=== PATIENT | male | born 1970 | race Hispanic/Latino ===

== ENCOUNTER 2020-04-25 15:06 | Emergency (ER) | payer MEDICARE ==
[2020-04-25] MEDS ORDERED: Vancomycin HCl 500 MG VIAL ONE ×2 (16:20)
[2020-04-25] MEDS ORDERED: Cefepime 2 GM VIAL ONE (16:20)
[2020-04-25 16:24] LABS: #Eosinphils 0.1 10x3/uL (0.0-0.5); #Monocytes 0.6 10x3/uL (0.0-1.1); #Neutrophils 12.2 10x3/uL (1.5-8.4); %Basophils 0.2 % (0.0-2.0); %Eosinophils 0.8 % (0.0-6.0); %Lymphocytes 6.7 % (18.0-47.0); %Monocytes 4.3 % (0.0-10.0); %Neutrophils 86.9 % (40.0-75.0); Hemoglobin 7.9 g/dL (13.5-17.5); Mean Corpuscular HGB CONC 31.9 g/dL (32.0-36.0); Mean Corpuscular Hemoglobin 29.4 pg (27.0-33.0); Mean Corpuscular Volume 92.2 fl (81.2-95.1); Mean Platelet Volume 8.9 fl (7.4-10.4); Platelet Count 451 10x3/uL (150-450); RBC Distribution Width 14.8 % (11.5-14.5); Red Blood Cell (RBC) Count 2.69 10x6/uL (4.32-5.72)
[2020-04-25 16:39] LABS: ALT (SGPT) 19 U/L (8-55); AST (SGOT) 28 U/L (5-34); Albumin 2.1 g/dL (3.5-5.0); Alkaline Phosphatase 60 U/L (40-110); Anion Gap 13 mmol/L (10-20); BUN (Urea Nitrogen) 54 mg/dL (8.9-20.6); Bilirubin, Total 0.2 mg/dL (0.2-1.2); Calc. Creatinine Clearance 0 mL/min (70-130); Calcium 7.8 mg/dL (7.8-10.44); Carbon Dioxide 16 mmol/L (22-29); Chloride 112 mmol/L (98-107); Globulin 3.3 g/dL (2.4-3.5); Glucose 159 mg/dL (70-105); Potassium 4.6 mmol/L (3.5-5.1); Protein, Total 5.4 g/dL (6.0-8.3); Sodium 136 mmol/L (136-145)
== END 2020-04-25 19:49 | disposition short-term general hospital (02) ==
LOC: CSHERS 15:06
DX: A41.9 Sepsis, unspecified organism (principal); M65.9 Synovitis and tenosynovitis, unspecified; E10.9 Type 1 diabetes mellitus without complications; D50.9 Iron deficiency anemia, unspecified; E78.5 Hyperlipidemia, unspecified
CPT/HCPCS: 80053; 83605; 85025; 85652; 86140; 87040; 93005; 96365; 96366; 96367; J0692; J3370

== ENCOUNTER 2020-10-22 10:45 | Outpatient (CLI) | payer MEDICARE | END 2020-10-22 10:46 | disposition home or self-care (01) | LOC: CSHWCC 10:45 | PROVIDERS: ATTEND Nurse Practitioner Family | DX: T87.89 Other complications of amputation stump (principal); T86.821 Skin graft (allograft) (autograft) failure; N49.3 Fournier gangrene; E11.621 Type 2 diabetes mellitus with foot ulcer; L97.509 Non-pressure chronic ulcer of other part of unspecified foot with unspecified severity; S31.20XD Unspecified open wound of penis, subsequent encounter; E11.319 Type 2 diabetes mellitus with unspecified diabetic retinopathy without macular edema; E11.40 Type 2 diabetes mellitus with diabetic neuropathy, unspecified; F33.9 Major depressive disorder, recurrent, unspecified; I10 Essential (primary) hypertension; G47.39 Other sleep apnea; R11.2 Nausea with vomiting, unspecified | CPT/HCPCS: 97139; G0463; 99213 ==

== ENCOUNTER 2020-12-08 09:57 | Outpatient (CLI) | payer MEDICARE | END 2020-12-08 09:58 | disposition home or self-care (01) | LOC: CSHWCC 09:57 | PROVIDERS: ATTEND Nurse Practitioner Family | DX: M72.6 Necrotizing fasciitis (principal) | CPT/HCPCS: 82962; 97139; G0277; 36416 ==

== ENCOUNTER 2020-12-10 08:15 | Outpatient (CLI) | payer MEDICARE | END 2020-12-10 08:16 | disposition home or self-care (01) | LOC: CSHWCC 08:15 | PROVIDERS: ATTEND Nurse Practitioner Family | DX: M72.6 Necrotizing fasciitis (principal) | CPT/HCPCS: 82962; 97139; G0277; 36416 ==

== ENCOUNTER 2020-12-13 08:36 | Outpatient (CLI) | payer MEDICARE | END 2020-12-13 08:37 | disposition home or self-care (01) | LOC: CSHWCC 08:36 | PROVIDERS: ATTEND Nurse Practitioner Family | DX: M72.6 Necrotizing fasciitis (principal) | CPT/HCPCS: 36416; G0277 ==

== ENCOUNTER 2020-12-22 09:26 | Outpatient (CLI) | payer MEDICARE | END 2020-12-22 09:27 | disposition home or self-care (01) | LOC: CSHWCC 09:26 | PROVIDERS: ATTEND Nurse Practitioner Family | DX: M72.6 Necrotizing fasciitis (principal); S31.20XD Unspecified open wound of penis, subsequent encounter; T86.821 Skin graft (allograft) (autograft) failure; E11.319 Type 2 diabetes mellitus with unspecified diabetic retinopathy without macular edema; E11.40 Type 2 diabetes mellitus with diabetic neuropathy, unspecified; E11.621 Type 2 diabetes mellitus with foot ulcer; L97.509 Non-pressure chronic ulcer of other part of unspecified foot with unspecified severity; F33.9 Major depressive disorder, recurrent, unspecified; G47.39 Other sleep apnea; I10 Essential (primary) hypertension; I96 Gangrene, not elsewhere classified; R11.2 Nausea with vomiting, unspecified | CPT/HCPCS: 36416 ==

== ENCOUNTER 2020-12-24 10:54 | Outpatient (CLI) | payer MEDICARE | END 2020-12-24 10:55 | disposition home or self-care (01) | LOC: CSHWCC 10:54 | PROVIDERS: ATTEND Nurse Practitioner Family | DX: M72.6 Necrotizing fasciitis (principal) | CPT/HCPCS: 36416; G0277 ==

== ENCOUNTER 2020-12-27 07:46 | Outpatient (CLI) | payer MEDICARE | END 2020-12-27 07:47 | disposition home or self-care (01) | LOC: CSHWCC 07:46 | PROVIDERS: ATTEND Nurse Practitioner Family | DX: M72.6 Necrotizing fasciitis (principal) | CPT/HCPCS: 36416; G0277 ==

== ENCOUNTER 2020-12-31 09:29 | Outpatient (CLI) | payer MEDICARE | END 2020-12-31 09:30 | disposition home or self-care (01) | LOC: CSHWCC 09:29 | PROVIDERS: ATTEND Nurse Practitioner Family | DX: M72.6 Necrotizing fasciitis (principal) | CPT/HCPCS: 36416; G0277 ==

== ENCOUNTER 2021-01-03 09:51 | Outpatient (CLI) | payer MEDICARE | END 2021-01-03 09:52 | disposition home or self-care (01) | LOC: CSHWCC 09:51 | PROVIDERS: ATTEND Nurse Practitioner Family | DX: M72.6 Necrotizing fasciitis (principal) | CPT/HCPCS: 36416; G0277 ==

== ENCOUNTER 2021-01-04 14:48 | Outpatient (CLI) | payer MEDICARE | END 2021-01-04 14:49 | disposition home or self-care (01) | LOC: CSHRAD 14:48 | PROVIDERS: ATTEND Internal Medicine | DX: R05.9 Cough, unspecified (principal); R06.02 Shortness of breath; R91.8 Other nonspecific abnormal finding of lung field | CPT/HCPCS: 71046 ==

== ENCOUNTER 2021-01-07 08:06 | Outpatient (CLI) | payer MEDICARE | END 2021-01-07 08:07 | disposition home or self-care (01) | LOC: CSHWCC 08:06 | PROVIDERS: ATTEND Nurse Practitioner Family | DX: M72.6 Necrotizing fasciitis (principal) | CPT/HCPCS: 36416; 99212; G0463 ==

== ENCOUNTER 2021-01-10 08:22 | Outpatient (CLI) | payer MEDICARE | END 2021-01-10 08:23 | disposition home or self-care (01) | LOC: CSHWCC 08:22 | PROVIDERS: ATTEND Nurse Practitioner Family | DX: M72.6 Necrotizing fasciitis (principal) | CPT/HCPCS: 36416; G0277 ==

== ENCOUNTER 2021-01-19 08:18 | Outpatient (CLI) | payer MEDICARE | END 2021-01-19 08:19 | disposition home or self-care (01) | LOC: CSHWCC 08:18 | PROVIDERS: ATTEND Nurse Practitioner Family | DX: M72.6 Necrotizing fasciitis (principal) | CPT/HCPCS: 36416 ==

== ENCOUNTER 2021-01-21 10:15 | Outpatient (CLI) | payer MEDICARE | END 2021-01-21 10:16 | disposition home or self-care (01) | LOC: CSHWCC 10:15 | PROVIDERS: ATTEND Nurse Practitioner Family | DX: S31.20XA Unspecified open wound of penis, initial encounter (principal); E11.319 Type 2 diabetes mellitus with unspecified diabetic retinopathy without macular edema; E11.40 Type 2 diabetes mellitus with diabetic neuropathy, unspecified; E11.621 Type 2 diabetes mellitus with foot ulcer; F33.9 Major depressive disorder, recurrent, unspecified; G47.39 Other sleep apnea; I10 Essential (primary) hypertension; I96 Gangrene, not elsewhere classified; M72.6 Necrotizing fasciitis; R11.2 Nausea with vomiting, unspecified; T86.821 Skin graft (allograft) (autograft) failure; L97.509 Non-pressure chronic ulcer of other part of unspecified foot with unspecified severity | CPT/HCPCS: 36416; 99213; G0277; G0463 ==

== ENCOUNTER 2021-01-31 08:05 | Outpatient (CLI) | payer MEDICARE | END 2021-01-31 08:06 | disposition home or self-care (01) | LOC: CSHWCC 08:05 | PROVIDERS: ATTEND Nurse Practitioner Family | DX: M72.6 Necrotizing fasciitis (principal) | CPT/HCPCS: 36416; G0277 ==

== ENCOUNTER 2021-02-02 10:45 | Outpatient (CLI) | payer MEDICARE | END 2021-02-02 10:46 | disposition home or self-care (01) | LOC: CSHWCC 10:45 | PROVIDERS: ATTEND Nurse Practitioner Family | DX: M72.6 Necrotizing fasciitis (principal) | CPT/HCPCS: 36416 ==

== ENCOUNTER 2021-02-04 08:22 | Outpatient (CLI) | payer MEDICARE | END 2021-02-04 08:23 | disposition home or self-care (01) | LOC: CSHWCC 08:22 | PROVIDERS: ATTEND Nurse Practitioner Family | DX: M72.6 Necrotizing fasciitis (principal) | CPT/HCPCS: 36416 ==

== ENCOUNTER 2021-03-13 18:16 | Emergency (ER) | payer MEDICARE, BC | END 2021-03-13 19:01 | disposition home or self-care (01) | LOC: CSHERS 18:16 | DX: R04.0 Epistaxis (principal); E11.9 Type 2 diabetes mellitus without complications; D50.9 Iron deficiency anemia, unspecified; I25.10 Atherosclerotic heart disease of native coronary artery without angina pectoris; E78.5 Hyperlipidemia, unspecified; I10 Essential (primary) hypertension | CPT/HCPCS: 99283 ==

== ENCOUNTER 2021-05-20 08:57 | Outpatient (CLI) | payer MEDICARE | END 2021-05-20 08:58 | disposition home or self-care (01) | LOC: CSHWCC 08:57 | PROVIDERS: ATTEND Nurse Practitioner Family | DX: I70.268 Atherosclerosis of native arteries of extremities with gangrene, other extremity (principal); L98.498 Non-pressure chronic ulcer of skin of other sites with other specified severity; L03.012 Cellulitis of left finger ==

== ENCOUNTER 2021-08-04 18:39 | Emergency (ER) | payer MEDICARE, BC ==
[2021-08-04] MEDS ORDERED: Cefepime 2 GM VIAL ONE (20:02)
[2021-08-04 20:03] LABS: #Eosinphils 0.1 10x3/uL (0.0-0.5); #Monocytes 0.9 10x3/uL (0.0-1.1); %Basophils 0.3 % (0.0-2.0); %Eosinophils 0.7 % (0.0-6.0); %Lymphocytes 5.9 % (18.0-47.0); %Monocytes 7.7 % (0.0-10.0); %Neutrophils 84.9 % (40.0-75.0); Hemoglobin 8.2 g/dL (13.5-17.5); Mean Corpuscular HGB CONC 32.9 g/dL (32.0-36.0); Mean Corpuscular Hemoglobin 30.1 pg (27.0-33.0); Mean Corpuscular Volume 91.5 fl (81.2-95.1); Mean Platelet Volume 10.1 fl (7.4-10.4); Platelet Count 190 10x3/uL (150-450); Red Blood Cell (RBC) Count 2.72 10x6/uL (4.32-5.72); White Blood Cell (WBC) Count 11.8 10x3/uL (3.5-10.5)
[2021-08-04 20:09] LABS: ALT (SGPT) 35 U/L (8-55); AST (SGOT) 52 U/L (5-34); Albumin 3.7 g/dL (3.5-5.0); Alkaline Phosphatase 88 U/L (40-110); Anion Gap 15 mmol/L (10-20); BUN (Urea Nitrogen) 31 mg/dL (8.4-25.7); Bilirubin, Total 0.7 mg/dL (0.2-1.2); Calc. Creatinine Clearance 0 mL/min (70-130); Calcium 9.2 mg/dL (7.8-10.44); Carbon Dioxide 31 mmol/L (22-29); Chloride 91 mmol/L (98-107); Globulin 5.2 g/dL (2.4-3.5); Glucose 139 mg/dL (70-105); Potassium 4.4 mmol/L (3.5-5.1); Protein, Total 8.9 g/dL (6.0-8.3); Sodium 133 mmol/L (136-145)
== END 2021-08-05 01:37 | disposition short-term general hospital (02) ==
LOC: CSHERS 18:39
DX: L08.9 Local infection of the skin and subcutaneous tissue, unspecified (principal); E11.9 Type 2 diabetes mellitus without complications; D64.9 Anemia, unspecified; I25.10 Atherosclerotic heart disease of native coronary artery without angina pectoris; E78.00 Pure hypercholesterolemia, unspecified; I10 Essential (primary) hypertension
CPT/HCPCS: 36415; 80053; 83605; 85025; 87040; 87070; 87077; 87186; 87205; 96365; 96366; 96367; J0692; J3370

== ENCOUNTER 2022-01-12 03:09 | Emergency (ER) | payer MEDICARE, OTHER ==
[2022-01-12] MEDS ORDERED: Oxymetazoline HCl 0.05% ( 15 ML ) ONE (03:42)
== END 2022-01-12 05:01 | disposition home or self-care (01) ==
LOC: CSHERS 03:09
DX: R04.0 Epistaxis (principal); E11.9 Type 2 diabetes mellitus without complications; E78.5 Hyperlipidemia, unspecified; I10 Essential (primary) hypertension; I25.10 Atherosclerotic heart disease of native coronary artery without angina pectoris; Z79.899 Other long term (current) drug therapy
CPT/HCPCS: 99283

== ENCOUNTER 2022-03-17 08:27 | Outpatient (CLI) | payer BC, MEDICARE | END 2022-03-17 08:28 | disposition home or self-care (01) | LOC: CSHWCC 08:27 | PROVIDERS: ATTEND Nurse Practitioner Family | DX: T81.89XD Other complications of procedures, not elsewhere classified, subsequent encounter (principal) | CPT/HCPCS: 11043; 87070; 87077; 87186; 87205; 97139; 97605; G0463; 99212 ==

== ENCOUNTER 2022-03-19 11:30 | Emergency (ER) | payer MEDICARE, BC ==
[2022-03-19] MEDS ORDERED: HYDROcodone/Acetaminophen 5/325 mg Tablet ONE (12:24)
== END 2022-03-19 13:15 | disposition home or self-care (01) ==
LOC: CSHERS 11:30
DX: M25.522 Pain in left elbow (principal); E11.9 Type 2 diabetes mellitus without complications; Z79.4 Long term (current) use of insulin; I25.10 Atherosclerotic heart disease of native coronary artery without angina pectoris; E78.2 Mixed hyperlipidemia; I10 Essential (primary) hypertension; Z79.899 Other long term (current) drug therapy; Z79.82 Long term (current) use of aspirin

== ENCOUNTER 2022-03-21 12:19 | Emergency (ER) | payer MEDICARE, BC ==
[2022-03-21 13:31] LABS: #Eosinphils 0.1 10x3/uL (0.0-0.5); #Monocytes 0.5 10x3/uL (0.0-1.1); #Neutrophils 9.8 10x3/uL (1.5-8.4); %Basophils 0.2 % (0.0-2.0); %Eosinophils 0.6 % (0.0-6.0); %Lymphocytes 3.8 % (18.0-47.0); %Monocytes 4.7 % (0.0-10.0); %Neutrophils 90.2 % (40.0-75.0); Hemoglobin 7.2 g/dL (13.5-17.5); Mean Corpuscular HGB CONC 32.3 g/dL (32.0-36.0); Mean Corpuscular Hemoglobin 31.7 pg (27.0-33.0); Mean Corpuscular Volume 98.2 fl (81.2-95.1); Mean Platelet Volume 10.6 fl (7.4-10.4); Platelet Count 181 10x3/uL (150-450); RBC Distribution Width 17.4 % (11.5-14.5); Red Blood Cell (RBC) Count 2.27 10x6/uL (4.32-5.72); White Blood Cell (WBC) Count 10.9 10x3/uL (3.5-10.5)
[2022-03-21 13:56] LABS: Bilirubin, Total 0.8 mg/dL (0.2-1.2); Calcium 8.9 mg/dL (7.8-10.44); Chloride 97 mmol/L (98-107); Potassium 3.4 mmol/L (3.5-5.1); Sodium 138 mmol/L (136-145)
[2022-03-21 14:28] LABS: ALT (SGPT) 18 U/L (8-55); AST (SGOT) 30 U/L (5-34); Albumin 3.7 g/dL (3.5-5.0); Alkaline Phosphatase 99 U/L (40-110); BUN (Urea Nitrogen) 25 mg/dL (8.4-25.7); Calc. Creatinine Clearance 0 mL/min (70-130); Carbon Dioxide 29 mmol/L (22-29); Estimated GFR 22; Globulin 4.4 g/dL (2.4-3.5); Glucose 82 mg/dL (70-105); Protein, Total 8.1 g/dL (6.0-8.3)
[2022-03-21 14:48] LABS: Anion Gap 15 mmol/L (10-20)
== END 2022-03-21 15:53 | disposition home or self-care (01) ==
LOC: CSHERS 12:19
DX: D64.9 Anemia, unspecified (principal); E11.22 Type 2 diabetes mellitus with diabetic chronic kidney disease; N18.9 Chronic kidney disease, unspecified; E78.2 Mixed hyperlipidemia; I10 Essential (primary) hypertension; Z79.4 Long term (current) use of insulin
CPT/HCPCS: 80053; 85025; 99284

== ENCOUNTER 2022-03-24 10:30 | Outpatient (CLI) | payer MEDICARE, BC | END 2022-03-24 10:31 | disposition home or self-care (01) | LOC: CSHWCC 10:30 | PROVIDERS: ATTEND Nurse Practitioner Family | DX: T81.89XD Other complications of procedures, not elsewhere classified, subsequent encounter (principal) | CPT/HCPCS: 97605 ==

== ENCOUNTER 2022-05-09 06:02 | Inpatient (IN) | payer BC, MEDICARE ==
[2022-05-09] MEDS ORDERED: Dextrose 50% Abboject 50 ML SYRINGE SLOW IVP SCH (06:30)
[2022-05-09 06:41] LABS: #Monocytes 0.4 10x3/uL (0.0-1.1); #Neutrophils 10.4 10x3/uL (1.5-8.4); %Basophils 0.1 % (0.0-2.0); %Eosinophils 0.2 % (0.0-6.0); %Lymphocytes 2.2 % (18.0-47.0); %Monocytes 3.8 % (0.0-10.0); %Neutrophils 92.9 % (40.0-75.0); Hemoglobin 8.1 g/dL (13.5-17.5); Mean Corpuscular HGB CONC 32.1 g/dL (32.0-36.0); Mean Corpuscular Hemoglobin 31.8 pg (27.0-33.0); Mean Corpuscular Volume 98.8 fl (81.2-95.1); Mean Platelet Volume 11.7 fl (7.4-10.4); Platelet Count 138 10x3/uL (150-450); RBC Distribution Width 17.3 % (11.5-14.5); Red Blood Cell (RBC) Count 2.55 10x6/uL (4.32-5.72); White Blood Cell (WBC) Count 11.2 10x3/uL (3.5-10.5)
[2022-05-09] MEDS ORDERED: Ondansetron PF 4 MG/2 ML Vial ONE (06:43)
[2022-05-09 06:51] LABS: INR-International Normal Ratio 1.5; PTT 36.1 sec (22.0-33.0); Prothrombin Time 16.1 sec (9.5-12.1)
[2022-05-09 06:57] LABS: ALT (SGPT) 23 U/L (8-55); AST (SGOT) 49 U/L (5-34); Albumin 3.3 g/dL (3.5-5.0); Alkaline Phosphatase 63 U/L (40-110); Anion Gap 21 mmol/L (10-20); BUN (Urea Nitrogen) 61 mg/dL (8.4-25.7); Bilirubin, Total 1.4 mg/dL (0.2-1.2); Calc. Creatinine Clearance 0 mL/min (70-130); Carbon Dioxide 19 mmol/L (22-29); Chloride 95 mmol/L (98-107); Estimated GFR 9; Globulin 4.3 g/dL (2.4-3.5); Glucose 70 mg/dL (70-105); Potassium 4.4 mmol/L (3.5-5.1); Protein, Total 7.6 g/dL (6.0-8.3); Sodium 131 mmol/L (136-145)
[2022-05-09 07:15] LABS: SARS-CoV-2 NAA Rapid Test Not Detected (NotDetected)
[2022-05-09 07:25] LABS: CKMB 3.4 ng/mL (0-6.6)
[2022-05-09] MEDS ORDERED: Vancomycin 1 GM VIAL ONE (08:47)
[2022-05-09] MEDS ORDERED: Piperacillin/Tazobactam 3.375 GM VIAL ONE (08:48)
[2022-05-09] MEDS ORDERED: Iopamidol 300 61% 100 ML VIAL FS ONE (09:10)
[2022-05-09 09:24] LABS: Lactic Acid 1.8 mmol/L (0.5-2.2)
[2022-05-09] MEDS ORDERED: Insulin Regular 300 UNITS/3 ML VIAL SC PRN ×2 (13:07)
[2022-05-09] MEDS ORDERED: Dextrose 5% in Water 1,000 ML IV PRN (13:07)
[2022-05-09] MEDS ORDERED: Dextrose 50% Abboject 50 ML SYRINGE SLOW IVP PRN (13:07)
[2022-05-09 13:44] LABS: Acetaminophen Less than 10.0 mcg/mL (10.0-30.0); Alcohol Less than 10 mg/dL (Less than 10); Salicylate Less than 8.0 mg/dL (15.0-30.0)
[2022-05-09 14:12] LABS: CKMB 3.3 ng/mL (0-6.6)
[2022-05-09 14:12] LABS: Magnesium 1.7 mg/dL (1.6-2.6); Phosphorus 4.8 mg/dL (2.3-4.7)
[2022-05-09] MEDS ORDERED: Heparin 10,000 UNITS/ 10 ML VIAL SLOW IVP PRN (14:19)
[2022-05-09] MEDS ORDERED: metroNIDAZOLE 500 MG in Premix Bag 1 BAG IVPB SCH (15:00)
[2022-05-09] MEDS ORDERED: Dextrose 10% in Water 250 ML IV PRN (15:37)
[2022-05-09] MEDS ORDERED: Albumin 25% 25 GM/100 ML BOT IVPB PRN (16:18)
[2022-05-09] MEDS ORDERED: Cefepime 0.5 GM, Admixture Fee 1 EACH in Sodium Chloride 0.9% 100 ML IVPB SCH (20:00)
[2022-05-09] MEDS: Doxycycline 100 MG in Sodium Chloride 0.9% 100 ML IVPB SCH (20:41)
[2022-05-10 04:01] LABS: #Monocytes 0.3 10x3/uL (0.0-1.1); #Neutrophils 7.4 10x3/uL (1.5-8.4); %Basophils 0.1 % (0.0-2.0); %Eosinophils 0.2 % (0.0-6.0); %Lymphocytes 4.5 % (18.0-47.0); %Monocytes 3.1 % (0.0-10.0); Hemoglobin 6.9 g/dL (13.5-17.5); Mean Corpuscular HGB CONC 31.4 g/dL (32.0-36.0); Mean Corpuscular Hemoglobin 30.9 pg (27.0-33.0); Mean Corpuscular Volume 98.7 fl (81.2-95.1); Mean Platelet Volume 12.5 fl (7.4-10.4); Platelet Count 97 10x3/uL (150-450); RBC Distribution Width 17.5 % (11.5-14.5); Red Blood Cell (RBC) Count 2.23 10x6/uL (4.32-5.72); White Blood Cell (WBC) Count 8.4 10x3/uL (3.5-10.5)
[2022-05-10 04:15] LABS: ALT (SGPT) 28 U/L (8-55); AST (SGOT) 75 U/L (5-34); Albumin 3.3 g/dL (3.5-5.0); Alkaline Phosphatase 48 U/L (40-110); Anion Gap 14 mmol/L (10-20); BUN (Urea Nitrogen) 23 mg/dL (8.4-25.7); Calc. Creatinine Clearance 27 mL/min (70-130); Calcium 8.8 mg/dL (7.8-10.44); Carbon Dioxide 26 mmol/L (22-29); Chloride 101 mmol/L (98-107); Estimated GFR 22; Globulin 3.4 g/dL (2.4-3.5); Glucose 88 mg/dL (70-105); Potassium 3.7 mmol/L (3.5-5.1); Protein, Total 6.7 g/dL (6.0-8.3); Sodium 137 mmol/L (136-145)
[2022-05-10] MEDS: metroNIDAZOLE 500 MG in Premix Bag 1 BAG IVPB SCH ×2 (04:20→15:51)
[2022-05-10 04:50] LABS: Band 25 % (5-11); Lymphocytes 5 % (21-51); Monocytes 2 % (0-10)
[2022-05-10 04:51] LABS: Neutrophil 68 % (42-75)
[2022-05-10] MEDS: Pantoprazole 40 MG VIAL IVP SCH (07:48)
[2022-05-10] MEDS: Doxycycline 100 MG in Sodium Chloride 0.9% 100 ML IVPB SCH (07:48)
[2022-05-10 12:05] LABS: Iron 15 ug/dL (65-175); Iron Binding Capacity, Total 186 mcg/dL (261-462)
[2022-05-10] MEDS: Vancomycin HCl 25 MG/ML ORAL SOLN PO SCH ×3 (12:51→23:50)
[2022-05-10] MEDS ORDERED: Metoprolol Tartrate 25 MG TAB PO SCH (13:00)
[2022-05-10] MEDS: Metoprolol Tartrate 25 MG TAB PO SCH (20:19)
[2022-05-10 20:55] LABS: Campy jejuni + coli by PCR Negative (Negative); STEC Shiga Toxin 1+2 Negative (Negative); Salmonella spp. by PCR Negative (Negative); Shigella spp + EIEC by PCR Negative (Negative)
[2022-05-11] MEDS: metroNIDAZOLE 500 MG in Premix Bag 1 BAG IVPB SCH ×2 (03:49→16:39)
[2022-05-11 04:03] LABS: Anion Gap 14 mmol/L (10-20); BUN (Urea Nitrogen) 37 mg/dL (8.4-25.7); Calc. Creatinine Clearance 20 mL/min (70-130); Calcium 8.3 mg/dL (7.8-10.44); Carbon Dioxide 23 mmol/L (22-29); Chloride 98 mmol/L (98-107); Estimated GFR 15; Glucose 82 mg/dL (70-105); Potassium 3.8 mmol/L (3.5-5.1); Sodium 131 mmol/L (136-145)
[2022-05-11 04:08] LABS: Hemoglobin 6.9 g/dL (13.5-17.5); Mean Corpuscular HGB CONC 30.8 g/dL (32.0-36.0); Mean Corpuscular Hemoglobin 30.9 pg (27.0-33.0); Mean Corpuscular Volume 100.4 fl (81.2-95.1); Mean Platelet Volume 12.8 fl (7.4-10.4); Platelet Count 96 10x3/uL (150-450); RBC Distribution Width 17.5 % (11.5-14.5); Red Blood Cell (RBC) Count 2.23 10x6/uL (4.32-5.72); White Blood Cell (WBC) Count 8.3 10x3/uL (3.5-10.5)
[2022-05-11 04:39] LABS: MDiff Complete? YES
[2022-05-11 04:42] LABS: Band 13 % (5-11); Lymphocytes 4 % (21-51); Monocytes 3 % (0-10); Neutrophil 80 % (42-75)
[2022-05-11 04:43] LABS: Platelet Clumps SLIGHT; Platelet Morphology Comment Appears Decreased
[2022-05-11 04:44] LABS: RBC Morphology Normal
[2022-05-11] MEDS: Vancomycin HCl 25 MG/ML ORAL SOLN PO SCH ×3 (05:14→19:23)
[2022-05-11] MEDS ORDERED: Iron, Sodium Ferric Gluconate 250 MG in Sodium Chloride 0.9% 250 ML 250 ML IVPB SCH (07:45)
[2022-05-11] MEDS: Metoprolol Tartrate 25 MG TAB PO SCH ×2 (08:27→21:12)
[2022-05-11] MEDS: Pantoprazole 40 MG VIAL IVP SCH (08:27)
[2022-05-11] MEDS ORDERED: EPOETIN ALFA-EPBX (ESRD) 10,000 UNIT/ML VIAL SC SCH ×2 (09:00→11:00)
[2022-05-11] MEDS ORDERED: Famotidine/PF 20 mg/2ml Vial SLOW IVP SCH (09:00)
[2022-05-11] MEDS: Acetaminophen 325 MG TAB PO PRN (09:02)
[2022-05-11 10:40] LABS: Actual Bicarbonate (HCO3v) 23 mEq/L (22-28); Base Excess -2.2 mEq/L (-2 - +2); Calcium, Ionized (venous) 1.03 mmol/L (1.16-1.32); Chloride (VBG) 96 mmol/L (98-106); Hemoglobin (Hb) 7.7 g/dL (13.1-17.2); Potassium (VBG) 4.08 mmol/L (3.70-5.30); Puncture Site Other Site; pH (venous) 7.39 (7.32-7.43)
[2022-05-11] MEDS: Albumin 25% 25 GM/100 ML BOT IVPB SCH ×2 (11:47→13:27)
[2022-05-11] MEDS: Epoetin (ESRD) 20,000 UNITS/ML MDV SC SCH (12:45)
[2022-05-11] MEDS ORDERED: Ondansetron PF 4 MG/2 ML Vial IVP PRN (17:24)
[2022-05-11] MEDS ORDERED: Metoclopramide HCl 10 MG/2 ML VIAL IVP PRN (18:44)
[2022-05-12] MEDS: Vancomycin HCl 25 MG/ML ORAL SOLN PO SCH ×5 (00:43→23:26)
[2022-05-12] MEDS: metroNIDAZOLE 500 MG in Premix Bag 1 BAG IVPB SCH ×2 (03:10→15:34)
[2022-05-12] MEDS: Metoprolol Tartrate 25 MG TAB PO SCH ×2 (08:02→21:33)
[2022-05-12] MEDS: Famotidine/PF 20 mg/2ml Vial SLOW IVP SCH (08:02)
[2022-05-12 08:28] LABS: #Eosinphils 0.1 10x3/uL (0.0-0.5); #Monocytes 0.6 10x3/uL (0.0-1.1); #Neutrophils 8.7 10x3/uL (1.5-8.4); %Basophils 0.3 % (0.0-2.0); %Eosinophils 0.6 % (0.0-6.0); %Lymphocytes 3.9 % (18.0-47.0); %Monocytes 5.5 % (0.0-10.0); %Neutrophils 87.8 % (40.0-75.0); Hemoglobin 7.3 g/dL (13.5-17.5); Mean Corpuscular HGB CONC 30.5 g/dL (32.0-36.0); Mean Corpuscular Hemoglobin 30.7 pg (27.0-33.0); Mean Corpuscular Volume 100.4 fl (81.2-95.1); Mean Platelet Volume 12.1 fl (7.4-10.4); Platelet Count 91 10x3/uL (150-450); RBC Distribution Width 17.9 % (11.5-14.5); Red Blood Cell (RBC) Count 2.38 10x6/uL (4.32-5.72); White Blood Cell (WBC) Count 9.9 10x3/uL (3.5-10.5)
[2022-05-12 08:43] LABS: Albumin 3.6 g/dL (3.5-5.0); Anion Gap 16 mmol/L (10-20); BUN (Urea Nitrogen) 22 mg/dL (8.4-25.7); BUN/Creatinine Ratio 7.03; Calc. Creatinine Clearance 29 mL/min (70-130); Calcium 8.7 mg/dL (7.8-10.44); Carbon Dioxide 25 mmol/L (22-29); Chloride 97 mmol/L (98-107); Estimated GFR 23; Glucose 109 mg/dL (70-105); Phosphorus 2.9 mg/dL (2.3-4.7); Potassium 3.8 mmol/L (3.5-5.1); Sodium 134 mmol/L (136-145)
[2022-05-12 10:00] LABS: Platelet Morphology Comment Appears Decreased
[2022-05-12 10:01] LABS: Anisocytosis SLIGHT = 6-15 cells (100X) (0-5/hpf); Macrocytosis SLIGHT = 6-15 cells (100X) (0-5/hpf); Microcytosis SLIGHT = 6-15 cells (100X) (0-5/hpf)
[2022-05-12 10:02] LABS: Hypochromia SLIGHT = 6-15 cells (100X) (0-5/hpf); Stomatocytes SLIGHT = 2-5 cells (100X) (0-1/hpf); Target Cells SLIGHT = 2-5 cells (100X) (0-1/hpf)
[2022-05-12] MEDS: Loperamide HCl 2 MG CAP PO SCH ×3 (11:05→23:25)
[2022-05-12] MEDS ORDERED: Insulin Regular 300 UNITS/3 ML VIAL ONE (22:07)
[2022-05-13] MEDS: metroNIDAZOLE 500 MG in Premix Bag 1 BAG IVPB SCH ×2 (03:07→16:14)
[2022-05-13] MEDS: Vancomycin HCl 25 MG/ML ORAL SOLN PO SCH ×4 (06:03→23:16)
[2022-05-13] MEDS: Loperamide HCl 2 MG CAP PO SCH ×4 (06:03→23:16)
[2022-05-13] MEDS: Metoprolol Tartrate 25 MG TAB PO SCH ×2 (07:53→21:04)
[2022-05-13] MEDS: Famotidine/PF 20 mg/2ml Vial SLOW IVP SCH (07:53)
[2022-05-13 08:27] LABS: Hemoglobin 7.1 g/dL (13.5-17.5); MDiff Complete? YES; Mean Corpuscular HGB CONC 30.6 g/dL (32.0-36.0); Mean Corpuscular Hemoglobin 30.9 pg (27.0-33.0); Mean Corpuscular Volume 100.9 fl (81.2-95.1); Mean Platelet Volume 12.4 fl (7.4-10.4); Platelet Count 100 10x3/uL (150-450); RBC Distribution Width 18.1 % (11.5-14.5)
[2022-05-13 08:28] LABS: Albumin 3.1 g/dL (3.5-5.0); Anion Gap 19 mmol/L (10-20); BUN (Urea Nitrogen) 36 mg/dL (8.4-25.7); BUN/Creatinine Ratio 8.53; Calc. Creatinine Clearance 22 mL/min (70-130); Calcium 8.5 mg/dL (7.8-10.44); Carbon Dioxide 21 mmol/L (22-29); Chloride 96 mmol/L (98-107); Estimated GFR 16; Glucose 79 mg/dL (70-105); Phosphorus 3.4 mg/dL (2.3-4.7); Potassium 3.8 mmol/L (3.5-5.1); Sodium 132 mmol/L (136-145)
[2022-05-13 09:12] LABS: Myelocyte 1 % (0-0); Reactive Lymphocytes 1 % (0-10)
[2022-05-13 09:14] LABS: Band 5 % (5-11); Lymphocytes 5 % (21-51); Monocytes 7 % (0-10)
[2022-05-13 09:15] LABS: Neutrophil 81 % (42-75)
[2022-05-13 09:16] LABS: Platelet Morphology Comment Appears Decreased
[2022-05-13] MEDS: Albumin 25% 25 GM/100 ML BOT IVPB PRN ×2 (10:40→11:45)
[2022-05-13] MEDS: Epoetin (ESRD) 20,000 UNITS/ML MDV SC SCH (13:34)
[2022-05-13] MEDS: Ferrous Sulfate 325 MG TAB PO SCH (16:16)
[2022-05-13] MEDS: Acetaminophen 325 MG TAB PO PRN (16:16)
[2022-05-14] MEDS: metroNIDAZOLE 500 MG in Premix Bag 1 BAG IVPB SCH (04:27)
[2022-05-14] MEDS: Loperamide HCl 2 MG CAP PO SCH ×2 (05:07→11:12)
[2022-05-14] MEDS: Vancomycin HCl 25 MG/ML ORAL SOLN PO SCH ×2 (05:08→11:12)
[2022-05-14 05:16] VITALS: BMI 25.9
[2022-05-14] MEDS: Ferrous Sulfate 325 MG TAB PO SCH (07:45)
[2022-05-14] MEDS: Famotidine/PF 20 mg/2ml Vial SLOW IVP SCH (07:45)
[2022-05-14] MEDS: Metoprolol Tartrate 25 MG TAB PO SCH (07:45)
[2022-05-14 09:50] LABS: Anion Gap 16 mmol/L (10-20); BUN (Urea Nitrogen) 18 mg/dL (8.4-25.7); Calc. Creatinine Clearance 29 mL/min (70-130); Calcium 8.5 mg/dL (7.8-10.44); Carbon Dioxide 27 mmol/L (22-29); Chloride 96 mmol/L (98-107); Estimated GFR 24; Glucose 86 mg/dL (70-105); Potassium 3.7 mmol/L (3.5-5.1); Sodium 135 mmol/L (136-145)
[2022-05-14 10:16] LABS: Hemoglobin 7.2 g/dL (13.5-17.5); Mean Corpuscular HGB CONC 31.2 g/dL (32.0-36.0); Mean Corpuscular Hemoglobin 31.3 pg (27.0-33.0); Mean Corpuscular Volume 100.4 fl (81.2-95.1); Mean Platelet Volume 12.6 fl (7.4-10.4); Platelet Count 105 10x3/uL (150-450); RBC Distribution Width 18.1 % (11.5-14.5); White Blood Cell (WBC) Count 10.5 10x3/uL (3.5-10.5)
[2022-05-14 10:17] LABS: MDiff Complete? YES
[2022-05-14 11:26] VITALS: BP 163/81; TEMP 98.6
[2022-05-14 11:40] LABS: Band 8 % (5-11); Neutrophil 75 % (42-75); Reactive Lymphocytes 2 % (0-10)
[2022-05-14 11:45] LABS: Eosinophils 1 % (0-10); Lymphocytes 6 % (21-51); Monocytes 8 % (0-10)
[2022-05-14 11:46] LABS: Platelet Morphology Comment Appears Decreased
== END 2022-05-14 11:15 | disposition home or self-care (01) | DRG 871 ==
LOC: CSHERS 06:02 → CSHIMCU 14:19
PROVIDERS: ADMIT Internal Medicine; ATTEND Internal Medicine
PROC: 5A1D70Z Performance of Urinary Filtration, Intermittent, Less than 6 Hours Per Day (ICD-10-PCS; principal; 2022-05-09)
PROC: 3E03329 Introduction of Other Anti-infective into Peripheral Vein, Percutaneous Approach (ICD-10-PCS; 2022-05-09)
DX: A41.9 Sepsis, unspecified organism (principal); G92.8 Other toxic encephalopathy; N18.6 End stage renal disease; E87.1 Hypo-osmolality and hyponatremia; E87.20 Acidosis, unspecified; N25.81 Secondary hyperparathyroidism of renal origin; A04.72 Enterocolitis due to Clostridium difficile, not specified as recurrent; J98.11 Atelectasis; R18.8 Other ascites; K72.10 Chronic hepatic failure without coma; I50.9 Heart failure, unspecified; Z66 Do not resuscitate; E78.1 Pure hyperglyceridemia; F32.A Depression, unspecified; E11.649 Type 2 diabetes mellitus with hypoglycemia without coma; I95.9 Hypotension, unspecified; I25.10 Atherosclerotic heart disease of native coronary artery without angina pectoris; R65.20 Severe sepsis without septic shock; E11.51 Type 2 diabetes mellitus with diabetic peripheral angiopathy without gangrene; E87.70 Fluid overload, unspecified; F41.1 Generalized anxiety disorder; D63.8 Anemia in other chronic diseases classified elsewhere; E11.22 Type 2 diabetes mellitus with diabetic chronic kidney disease; Z99.2 Dependence on renal dialysis; Z95.1 Presence of aortocoronary bypass graft; Z89.512 Acquired absence of left leg below knee; Z89.511 Acquired absence of right leg below knee; Z89.212 Acquired absence of left upper limb below elbow; Z79.899 Other long term (current) drug therapy; Z79.82 Long term (current) use of aspirin; Z79.4 Long term (current) use of insulin
CPT/HCPCS: 36415; 36416; 70450; 71045; 74177; 80048; 80053; 80069; 80307; 82140; 82553; 82728; 82805; 83540; 83550; 83605; 83735; 83880; 84100; 84145; 84484; 85025; 85610; 85730; 87040; 87324; 87449; 87505; 90935; 93005; 93010; 93306; 94760; 94762; 96365; 96367; 96375; C9113; G0257; J0692; J1644; J1815; J2405; J2543; J2765; J2916; J3370; J3490; J7050; J7999; P9047; Q4081; Q9967; S0028

== ENCOUNTER 2022-05-17 08:36 | Inpatient (IN) | payer BC, MEDICARE ==
[2022-05-17 09:30] LABS: Hemoglobin 6.6 g/dL (13.5-17.5); Mean Corpuscular HGB CONC 31.9 g/dL (32.0-36.0); Mean Corpuscular Hemoglobin 35.7 pg (27.0-33.0); Mean Corpuscular Volume 111.9 fl (81.2-95.1); Mean Platelet Volume 11.2 fl (7.4-10.4); Platelet Count 221 10x3/uL (150-450); RBC Distribution Width 23.1 % (11.5-14.5); Red Blood Cell (RBC) Count 1.85 10x6/uL (4.32-5.72); White Blood Cell (WBC) Count 20.8 10x3/uL (3.5-10.5)
[2022-05-17 09:53] LABS: ALT (SGPT) 41 U/L (8-55); AST (SGOT) 135 U/L (5-34); Albumin 3.2 g/dL (3.5-5.0); Alkaline Phosphatase 61 U/L (40-110); Anion Gap 19 mmol/L (10-20); BUN (Urea Nitrogen) 34 mg/dL (8.4-25.7); Bilirubin, Total 11.5 mg/dL (0.2-1.2); Calc. Creatinine Clearance 0 mL/min (70-130); Calcium 8.4 mg/dL (7.8-10.44); Carbon Dioxide 27 mmol/L (22-29); Chloride 93 mmol/L (98-107); Estimated GFR 14; Globulin 3.9 g/dL (2.4-3.5); Glucose 92 mg/dL (70-105); Lipase 229 U/L (8-78); Potassium 4.3 mmol/L (3.5-5.1); Protein, Total 7.1 g/dL (6.0-8.3); Sodium 135 mmol/L (136-145)
[2022-05-17 10:13] LABS: CKMB 3.2 ng/mL (0-6.6)
[2022-05-17 10:24] LABS: SARS-CoV-2 NAA Rapid Test Not Detected (NotDetected)
[2022-05-17 10:31] LABS: Actual Bicarbonate (HCO3v) 27 mEq/L (22-28); Base Excess 2.8 mEq/L (-2 - +2); Calcium, Ionized (venous) 1.07 mmol/L (1.16-1.32); Chloride (VBG) 94 mmol/L (98-106); Hemoglobin (Hb) 7.8 g/dL (13.1-17.2); Potassium (VBG) 4.27 mmol/L (3.70-5.30); Puncture Site Other Site; RapidComm Collect By CBN; pH (venous) 7.44 (7.32-7.43)
[2022-05-17 10:38] LABS: MDiff Complete? YES
[2022-05-17 10:46] LABS: Band 6 % (5-11); Lymphocytes 13 % (21-51); Monocytes 5 % (0-10); Neutrophil 76 % (42-75)
[2022-05-17 10:53] LABS: Platelet Morphology Comment Appears Adequate
[2022-05-17 10:54] LABS: Macrocytosis SLIGHT = 6-15 cells (100X) (0-5/hpf)
[2022-05-17 10:55] LABS: Hypochromia SLIGHT = 6-15 cells (100X) (0-5/hpf)
[2022-05-17 10:57] LABS: Polychromasia SLIGHT = 2-3 cells (100X) (0-2/hpf)
[2022-05-17] MEDS ORDERED: Diazepam 2 MG TAB PO PRN (12:22)
[2022-05-17] MEDS ORDERED: Ondansetron PF 4 MG/2 ML Vial IVP PRN (12:27)
[2022-05-17] MEDS ORDERED: Acetaminophen 325 MG TAB PO PRN (12:27)
[2022-05-17] MEDS ORDERED: Dextrose 5% in Water 1,000 ML IV PRN (13:29)
[2022-05-17 13:34] LABS: Troponin I 1.112 ng/mL (< 0.028)
[2022-05-17] MEDS ORDERED: Piperacillin/Tazobactam 3.375 GM in Sodium Chloride 0.9% 100 ML IVPB SCH (15:00)
[2022-05-17] MEDS ORDERED: Gabapentin 300 MG CAP ONE (16:13)
[2022-05-17] MEDS: Gabapentin 300 MG CAP PO SCH ×2 (16:24→22:20)
[2022-05-17] MEDS ORDERED: LACTASE 3000 UNIT PO SCH (17:00)
[2022-05-17] MEDS ORDERED: Piperacillin/Tazobactam 3.375 GM VIAL ONE (17:18)
[2022-05-17] MEDS ORDERED: Piperacillin/Tazobactam 2.25 GM in Sodium Chloride 0.9% 100 ML IVPB SCH (18:00)
[2022-05-17] MEDS: Calcium Acetate 667 MG CAP PO SCH (18:05)
[2022-05-17] MEDS: Vancomycin HCl 25 MG/ML ORAL SOLN PO SCH ×2 (18:07→22:29)
[2022-05-17 18:28] VITALS: BMI 53.5
[2022-05-17 19:29] LABS: Troponin I 1.105 ng/mL (< 0.028)
[2022-05-17] MEDS ORDERED: Aspirin Chewable 81 MG TAB PO SCH (20:00)
[2022-05-17 20:33] LABS: INR-International Normal Ratio 5.2; PTT 95.1 sec (22.0-33.0); Prothrombin Time 51.4 sec (9.5-12.1)
[2022-05-17] MEDS: Piperacillin/Tazobactam 3.375 GM in Sodium Chloride 0.9% 100 ML IVPB SCH (20:49)
[2022-05-17] MEDS ORDERED: Metoprolol Tartrate 25 MG TAB PO SCH (21:00)
[2022-05-17] MEDS: Sertraline 100 MG TAB PO SCH (22:20)
[2022-05-18 04:53] LABS: #Basophils 0.1 10x3/uL (0.0-0.2); #Eosinphils 0.1 10x3/uL (0.0-0.5); #Monocytes 1.3 10x3/uL (0.0-1.1); #Neutrophils 18.5 10x3/uL (1.5-8.4); %Basophils 0.3 % (0.0-2.0); %Eosinophils 0.5 % (0.0-6.0); %Lymphocytes 4.1 % (18.0-47.0); %Monocytes 5.9 % (0.0-10.0); %Neutrophils 86.2 % (40.0-75.0); Hemoglobin 7.5 g/dL (13.5-17.5); Mean Corpuscular HGB CONC 31.5 g/dL (32.0-36.0); Mean Corpuscular Hemoglobin 32.2 pg (27.0-33.0); Mean Corpuscular Volume 102.1 fl (81.2-95.1); Mean Platelet Volume 10.9 fl (7.4-10.4); Platelet Count 186 10x3/uL (150-450); RBC Distribution Width 20.6 % (11.5-14.5); Red Blood Cell (RBC) Count 2.33 10x6/uL (4.32-5.72); White Blood Cell (WBC) Count 21.5 10x3/uL (3.5-10.5)
[2022-05-18 04:54] LABS: MDiff Complete? YES
[2022-05-18 05:01] LABS: ALT (SGPT) 38 U/L (8-55); AST (SGOT) 156 U/L (5-34); Albumin 2.6 g/dL (3.5-5.0); Alkaline Phosphatase 48 U/L (40-110); Anion Gap 18 mmol/L (10-20); BUN (Urea Nitrogen) 43 mg/dL (8.4-25.7); Bilirubin, Total 11.1 mg/dL (0.2-1.2); Calc. Creatinine Clearance 18 mL/min (70-130); Calcium 8.3 mg/dL (7.8-10.44); Carbon Dioxide 24 mmol/L (22-29); Chloride 94 mmol/L (98-107); Estimated GFR 12; Globulin 3.9 g/dL (2.4-3.5); Glucose 62 mg/dL (70-105); Lipase 166 U/L (8-78); Potassium 4.4 mmol/L (3.5-5.1); Protein, Total 6.5 g/dL (6.0-8.3); Sodium 132 mmol/L (136-145)
[2022-05-18 06:06] LABS: Band 6 % (5-11); Eosinophils 1 % (0-10); Lymphocytes 7 % (21-51); Monocytes 9 % (0-10); Neutrophil 77 % (42-75)
[2022-05-18 06:09] LABS: Anisocytosis SLIGHT = 6-15 cells (100X) (0-5/hpf); Hypochromia SLIGHT = 6-15 cells (100X) (0-5/hpf); Microcytosis SLIGHT = 6-15 cells (100X) (0-5/hpf); Polychromasia SLIGHT = 2-3 cells (100X) (0-2/hpf)
[2022-05-18 06:10] LABS: Platelet Morphology Comment Appears Adequate; Stomatocytes SLIGHT = 2-5 cells (100X) (0-1/hpf)
[2022-05-18] MEDS: Dextrose 50% Abboject 50 ML SYRINGE SLOW IVP PRN ×2 (07:26→16:24)
[2022-05-18] MEDS ORDERED: Ferrous Sulfate 325 MG TAB PO SCH (09:00)
[2022-05-18] MEDS ORDERED: Aspirin 81 mg Enteric Coated Tablet PO SCH (09:00)
[2022-05-18] MEDS: Calcium Acetate 667 MG CAP PO SCH ×3 (09:21→16:48)
[2022-05-18] MEDS: Gabapentin 300 MG CAP PO SCH ×3 (09:25→23:09)
[2022-05-18] MEDS: Calcium Carbonate 600 MG + Vit D TAB PO SCH (09:25)
[2022-05-18] MEDS: Bupropion 150 MG XL TAB PO SCH (09:25)
[2022-05-18] MEDS: Saccharomyces boulardii 250 MG CAP PO SCH (09:25)
[2022-05-18] MEDS: Piperacillin/Tazobactam 3.375 GM in Sodium Chloride 0.9% 100 ML IVPB SCH ×2 (09:25→23:07)
[2022-05-18] MEDS: Metoprolol Tartrate 25 MG TAB PO SCH ×2 (09:25→23:08)
[2022-05-18] MEDS: Vancomycin HCl 25 MG/ML ORAL SOLN PO SCH ×4 (09:27→23:08)
[2022-05-18 13:54] LABS: INR-International Normal Ratio 5.7; Prothrombin Time 56.5 sec (9.5-12.1)
[2022-05-18] MEDS ORDERED: Phytonadione 10 MG/ML AMP PO SCH (15:00)
[2022-05-18] MEDS: Sertraline 100 MG TAB PO SCH (23:08)
[2022-05-19 04:59] LABS: Mean Corpuscular HGB CONC 31.7 g/dL (32.0-36.0); Mean Corpuscular Hemoglobin 33.3 pg (27.0-33.0); Mean Platelet Volume 10.9 fl (7.4-10.4); Platelet Count 187 10x3/uL (150-450); RBC Distribution Width 20.9 % (11.5-14.5); White Blood Cell (WBC) Count 22.3 10x3/uL (3.5-10.5)
[2022-05-19 05:00] LABS: INR-International Normal Ratio 2.5; Prothrombin Time 26.3 sec (9.5-12.1)
[2022-05-19 05:01] LABS: MDiff Complete? YES
[2022-05-19 05:13] LABS: ALT (SGPT) 47 U/L (8-55); AST (SGOT) 185 U/L (5-34); Albumin 2.5 g/dL (3.5-5.0); Alkaline Phosphatase 47 U/L (40-110); Anion Gap 17 mmol/L (10-20); BUN (Urea Nitrogen) 19 mg/dL (8.4-25.7); Bilirubin, Total 14.1 mg/dL (0.2-1.2); Calc. Creatinine Clearance 31 mL/min (70-130); Carbon Dioxide 26 mmol/L (22-29); Chloride 98 mmol/L (98-107); Estimated GFR 23; Globulin 4.1 g/dL (2.4-3.5); Glucose 59 mg/dL (70-105); Iron 100 ug/dL (65-175); Iron 97 ug/dL (65-175); Iron Binding Capacity, Total 96 mcg/dL (261-462); Lipase 157 U/L (8-78); Protein, Total 6.6 g/dL (6.0-8.3); Sodium 137 mmol/L (136-145)
[2022-05-19 05:50] LABS: Eosinophils 1 % (0-10); Lymphocytes 3 % (21-51); Monocytes 5 % (0-10); Neutrophil 91 % (42-75)
[2022-05-19 05:51] LABS: Anisocytosis SLIGHT = 6-15 cells (100X) (0-5/hpf); Macrocytosis SLIGHT = 6-15 cells (100X) (0-5/hpf); Platelet Morphology Comment Appears Adequate
[2022-05-19] MEDS ORDERED: EPOETIN ALFA-EPBX (ESRD) 10,000 UNIT/ML VIAL SC SCH (08:30)
[2022-05-19] MEDS: Piperacillin/Tazobactam 3.375 GM in Sodium Chloride 0.9% 100 ML IVPB SCH ×2 (09:13→22:37)
[2022-05-19] MEDS: EPOETIN ALFA-EPBX (ESRD) 4,000 UNIT/ML VIAL SC SCH (09:21)
[2022-05-19] MEDS: Calcium Acetate 667 MG CAP PO SCH ×3 (09:26→17:13)
[2022-05-19] MEDS: Bupropion 150 MG XL TAB PO SCH (09:27)
[2022-05-19] MEDS: Gabapentin 300 MG CAP PO SCH ×3 (09:27→22:38)
[2022-05-19] MEDS: Calcium Carbonate 600 MG + Vit D TAB PO SCH (09:28)
[2022-05-19] MEDS: Saccharomyces boulardii 250 MG CAP PO SCH (09:28)
[2022-05-19] MEDS: Vancomycin HCl 25 MG/ML ORAL SOLN PO SCH ×4 (09:35→22:38)
[2022-05-19] MEDS: Metoprolol Tartrate 25 MG TAB PO SCH ×2 (09:49→22:39)
[2022-05-19] MEDS: Sertraline 100 MG TAB PO SCH (22:39)
[2022-05-20 05:03] LABS: #Basophils 0.1 10x3/uL (0.0-0.2); #Eosinphils 0.1 10x3/uL (0.0-0.5); #Monocytes 1.2 10x3/uL (0.0-1.1); #Neutrophils 13.6 10x3/uL (1.5-8.4); %Basophils 0.3 % (0.0-2.0); %Eosinophils 0.5 % (0.0-6.0); %Lymphocytes 4.9 % (18.0-47.0); %Monocytes 7.5 % (0.0-10.0); %Neutrophils 85.3 % (40.0-75.0); Hemoglobin 9.3 g/dL (13.5-17.5); Mean Corpuscular HGB CONC 31.5 g/dL (32.0-36.0); Mean Corpuscular Hemoglobin 32.7 pg (27.0-33.0); Mean Corpuscular Volume 103.9 fl (81.2-95.1); Mean Platelet Volume 11.1 fl (7.4-10.4); Platelet Count 142 10x3/uL (150-450); RBC Distribution Width 22.4 % (11.5-14.5); Red Blood Cell (RBC) Count 2.84 10x6/uL (4.32-5.72)
[2022-05-20 05:04] LABS: INR-International Normal Ratio 1.8; Prothrombin Time 19.2 sec (9.5-12.1)
[2022-05-20 05:12] LABS: ALT (SGPT) 52 U/L (8-55); AST (SGOT) 191 U/L (5-34); Albumin 2.5 g/dL (3.5-5.0); Alkaline Phosphatase 44 U/L (40-110); Anion Gap 15 mmol/L (10-20); BUN (Urea Nitrogen) 28 mg/dL (8.4-25.7); Bilirubin, Total 17.9 mg/dL (0.2-1.2); Calc. Creatinine Clearance 22 mL/min (70-130); Calcium 8.1 mg/dL (7.8-10.44); Carbon Dioxide 26 mmol/L (22-29); Chloride 98 mmol/L (98-107); Estimated GFR 15; Globulin 4.2 g/dL (2.4-3.5); Glucose 81 mg/dL (70-105); Potassium 4.5 mmol/L (3.5-5.1); Protein, Total 6.7 g/dL (6.0-8.3); Sodium 134 mmol/L (136-145)
[2022-05-20] MEDS: traMADol HCl 50 MG TAB PO PRN (05:46)
[2022-05-20] MEDS ORDERED: Sodium Chloride 0.9% 100 ML ONE (09:35)
[2022-05-20] MEDS: Gabapentin 300 MG CAP PO SCH ×3 (10:32→21:11)
[2022-05-20] MEDS: Metoprolol Tartrate 25 MG TAB PO SCH ×2 (10:32→21:13)
[2022-05-20] MEDS: Calcium Acetate 667 MG CAP PO SCH ×3 (10:32→17:23)
[2022-05-20] MEDS: Piperacillin/Tazobactam 3.375 GM in Sodium Chloride 0.9% 100 ML IVPB SCH (10:33)
[2022-05-20] MEDS: Calcium Carbonate 600 MG + Vit D TAB PO SCH (10:33)
[2022-05-20] MEDS: Bupropion 150 MG XL TAB PO SCH (10:33)
[2022-05-20] MEDS: Saccharomyces boulardii 250 MG CAP PO SCH (10:34)
[2022-05-20] MEDS: Vancomycin HCl 25 MG/ML ORAL SOLN PO SCH ×4 (11:11→21:11)
[2022-05-20] MEDS: Sertraline 100 MG TAB PO SCH (21:11)
[2022-05-21 05:11] LABS: #Basophils 0.1 10x3/uL (0.0-0.2); #Eosinphils 0.1 10x3/uL (0.0-0.5); #Monocytes 1.4 10x3/uL (0.0-1.1); #Neutrophils 13.4 10x3/uL (1.5-8.4); %Basophils 0.4 % (0.0-2.0); %Eosinophils 0.6 % (0.0-6.0); %Lymphocytes 4.2 % (18.0-47.0); %Monocytes 8.9 % (0.0-10.0); %Neutrophils 84.6 % (40.0-75.0); Mean Corpuscular HGB CONC 31.3 g/dL (32.0-36.0); Mean Corpuscular Hemoglobin 30.8 pg (27.0-33.0); Mean Corpuscular Volume 98.6 fl (81.2-95.1); Platelet Count 152 10x3/uL (150-450); RBC Distribution Width 20.3 % (11.5-14.5); Red Blood Cell (RBC) Count 2.92 10x6/uL (4.32-5.72); White Blood Cell (WBC) Count 15.8 10x3/uL (3.5-10.5)
[2022-05-21 05:25] LABS: ALT (SGPT) 59 U/L (8-55); AST (SGOT) 205 U/L (5-34); Albumin 2.4 g/dL (3.5-5.0); Alkaline Phosphatase 41 U/L (40-110); Anion Gap 13 mmol/L (10-20); BUN (Urea Nitrogen) 16 mg/dL (8.4-25.7); Bilirubin, Total 20.8 mg/dL (0.2-1.2); Calc. Creatinine Clearance 34 mL/min (70-130); Carbon Dioxide 28 mmol/L (22-29); Chloride 97 mmol/L (98-107); Estimated GFR 25; Globulin 4.3 g/dL (2.4-3.5); Glucose 67 mg/dL (70-105); Protein, Total 6.7 g/dL (6.0-8.3); Sodium 134 mmol/L (136-145)
[2022-05-21] MEDS: Bupropion 150 MG XL TAB PO SCH (11:02)
[2022-05-21] MEDS: Calcium Acetate 667 MG CAP PO SCH ×3 (11:03→18:44)
[2022-05-21] MEDS: Metoprolol Tartrate 25 MG TAB PO SCH ×2 (11:03→21:27)
[2022-05-21] MEDS: Calcium Carbonate 600 MG + Vit D TAB PO SCH (11:03)
[2022-05-21] MEDS: Saccharomyces boulardii 250 MG CAP PO SCH (11:03)
[2022-05-21] MEDS: Gabapentin 300 MG CAP PO SCH ×3 (11:03→21:25)
[2022-05-21] MEDS: Vancomycin HCl 25 MG/ML ORAL SOLN PO SCH ×4 (11:09→21:27)
[2022-05-21 17:19] LABS: ANA Symphony (Qualitative) Negative (Negative); ANA Symphony (Quantitative) 0.6 Ratio (< 0.7 Negative); EliA Vaculitis New Method **** NEW METHOD ****
[2022-05-21] MEDS: traMADol HCl 50 MG TAB PO PRN (17:37)
[2022-05-21] MEDS: Ciprofloxacin Lactate/D5W 200 MG in Premix Bag 1 BAG IVPB SCH (21:21)
[2022-05-21] MEDS: Sertraline 100 MG TAB PO SCH (21:33)
[2022-05-22 04:42] LABS: #Eosinphils 0.1 10x3/uL (0.0-0.5); #Monocytes 1.4 10x3/uL (0.0-1.1); #Neutrophils 11.6 10x3/uL (1.5-8.4); %Basophils 0.3 % (0.0-2.0); %Eosinophils 0.7 % (0.0-6.0); %Monocytes 9.6 % (0.0-10.0); %Neutrophils 81.1 % (40.0-75.0); Mean Corpuscular HGB CONC 32.1 g/dL (32.0-36.0); Mean Corpuscular Hemoglobin 32.6 pg (27.0-33.0); Mean Corpuscular Volume 101.4 fl (81.2-95.1); Mean Platelet Volume 11.3 fl (7.4-10.4); Platelet Count 163 10x3/uL (150-450); RBC Distribution Width 21.6 % (11.5-14.5); Red Blood Cell (RBC) Count 2.76 10x6/uL (4.32-5.72); White Blood Cell (WBC) Count 14.3 10x3/uL (3.5-10.5)
[2022-05-22 04:57] LABS: ALT (SGPT) 58 U/L (8-55); AST (SGOT) 185 U/L (5-34); Albumin 2.2 g/dL (3.5-5.0); Alkaline Phosphatase 38 U/L (40-110); Anion Gap 15 mmol/L (10-20); BUN (Urea Nitrogen) 25 mg/dL (8.4-25.7); Bilirubin, Total 23.1 mg/dL (0.2-1.2); Calc. Creatinine Clearance 24 mL/min (70-130); Calcium 8.1 mg/dL (7.8-10.44); Carbon Dioxide 26 mmol/L (22-29); Chloride 95 mmol/L (98-107); Estimated GFR 17; Globulin 4.1 g/dL (2.4-3.5); Glucose 84 mg/dL (70-105); Potassium 4.5 mmol/L (3.5-5.1); Protein, Total 6.3 g/dL (6.0-8.3); Sodium 131 mmol/L (136-145)
[2022-05-22] MEDS: Calcium Acetate 667 MG CAP PO SCH ×3 (07:45→17:10)
[2022-05-22] MEDS: Metoprolol Tartrate 25 MG TAB PO SCH ×2 (07:45→22:10)
[2022-05-22] MEDS: Bupropion 150 MG XL TAB PO SCH (07:45)
[2022-05-22] MEDS: Calcium Carbonate 600 MG + Vit D TAB PO SCH (07:45)
[2022-05-22] MEDS: Albumin 25% 25 GM/100 ML BOT IVPB SCH ×3 (07:46→15:54)
[2022-05-22] MEDS: Saccharomyces boulardii 250 MG CAP PO SCH (07:46)
[2022-05-22] MEDS: Gabapentin 300 MG CAP PO SCH ×3 (07:49→22:10)
[2022-05-22 09:25] LABS: INR-International Normal Ratio 1.7; Prothrombin Time 17.8 sec (9.5-12.1)
[2022-05-22] MEDS: Vancomycin HCl 25 MG/ML ORAL SOLN PO SCH (09:44)
[2022-05-22 14:39] LABS: Hep A IgM AB Non-Reactive (NonReactive); Hep A IgM S/CO 0.14 S/CO (0-0.79)
[2022-05-22 14:40] LABS: HBCM Index 0.12 S/CO (0-0.79); Hepatitis B Core IgM Abs Non-Reactive (NonReactive)
[2022-05-22 16:11] LABS: HBSAg Index 0.21 S/CO (0-0.99); Hep B Surf Ag Non-Reactive S/CO (NonReactive)
[2022-05-22] MEDS: Ciprofloxacin Lactate/D5W 200 MG in Premix Bag 1 BAG IVPB SCH (20:45)
[2022-05-23 04:49] LABS: #Eosinphils 0.2 10x3/uL (0.0-0.5); #Monocytes 1.3 10x3/uL (0.0-1.1); #Neutrophils 11.1 10x3/uL (1.5-8.4); %Basophils 0.3 % (0.0-2.0); %Eosinophils 1.2 % (0.0-6.0); %Lymphocytes 6.3 % (18.0-47.0); %Monocytes 9.4 % (0.0-10.0); %Neutrophils 81.8 % (40.0-75.0); Hemoglobin 8.8 g/dL (13.5-17.5); Mean Corpuscular HGB CONC 32.5 g/dL (32.0-36.0); Mean Corpuscular Hemoglobin 31.7 pg (27.0-33.0); Mean Corpuscular Volume 97.5 fl (81.2-95.1); Mean Platelet Volume 11.1 fl (7.4-10.4); Platelet Count 174 10x3/uL (150-450); RBC Distribution Width 19.4 % (11.5-14.5); Red Blood Cell (RBC) Count 2.78 10x6/uL (4.32-5.72); White Blood Cell (WBC) Count 13.6 10x3/uL (3.5-10.5)
[2022-05-23 04:51] LABS: INR-International Normal Ratio 1.7; Prothrombin Time 17.7 sec (9.5-12.1)
[2022-05-23 04:57] LABS: ALT (SGPT) 52 U/L (8-55); AST (SGOT) 168 U/L (5-34); Albumin 2.7 g/dL (3.5-5.0); Alkaline Phosphatase 33 U/L (40-110); Anion Gap 17 mmol/L (10-20); BUN (Urea Nitrogen) 31 mg/dL (8.4-25.7); Calc. Creatinine Clearance 20 mL/min (70-130); Calcium 8.7 mg/dL (7.8-10.44); Carbon Dioxide 25 mmol/L (22-29); Chloride 90 mmol/L (98-107); Estimated GFR 13; Globulin 3.7 g/dL (2.4-3.5); Glucose 92 mg/dL (70-105); Potassium 4.7 mmol/L (3.5-5.1); Protein, Total 6.4 g/dL (6.0-8.3); Sodium 127 mmol/L (136-145)
[2022-05-23 05:09] LABS: Anisocytosis SLIGHT = 6-15 cells (100X) (0-5/hpf); Platelet Morphology Comment Appears Adequate
[2022-05-23] MEDS ORDERED: Midodrine HCl 2.5 MG TAB PO SCH (06:15)
[2022-05-23] MEDS ORDERED: Albumin 25% 25 GM/100 ML BOT IVPB SCH ×2 (06:15→12:00)
[2022-05-23] MEDS: Calcium Carbonate 600 MG + Vit D TAB PO SCH (09:24)
[2022-05-23] MEDS: Gabapentin 300 MG CAP PO SCH ×3 (09:24→23:36)
[2022-05-23] MEDS: Saccharomyces boulardii 250 MG CAP PO SCH (09:27)
[2022-05-23] MEDS: Calcium Acetate 667 MG CAP PO SCH ×4 (09:28→18:32)
[2022-05-23] MEDS: Metoprolol Tartrate 25 MG TAB PO SCH ×2 (09:29→23:31)
[2022-05-23] MEDS ORDERED: Midodrine HCl 5 MG TAB PO SCH (11:45)
[2022-05-23 11:58] LABS: Hep C IgG Ab Non-Reactive (NonReactive)
[2022-05-23] MEDS ORDERED: Ketamine 50 MG/ML (10ML VIAL) ONE (15:02)
[2022-05-23] MEDS ORDERED: Phenylephrine 10 MG/ML VIAL ONE (15:02)
[2022-05-23] MEDS ORDERED: SUGAMMADEX SODIUM 200 MG/2 ML VIAL ONE (15:03)
[2022-05-23] MEDS ORDERED: Fentanyl 100 MCG/2 ML VIAL ONE (15:05)
[2022-05-23] MEDS ORDERED: Midazolam HCl 2 mg/2 ml Vial ONE (15:09)
[2022-05-23] MEDS ORDERED: Albumin 25% 25 GM/100 ML BOT IVPB PRN (15:24)
[2022-05-23] MEDS ORDERED: Ethanolamine Oleate 5% 2 ml Ampule ONE (15:35)
[2022-05-23] MEDS ORDERED: Iopamidol 15 ML ONE (15:36)
[2022-05-23] MEDS ORDERED: Indomethacin 50 MG SUPP ONE (15:36)
[2022-05-23] MEDS ORDERED: ePHEDrine Sulfate 50 MG/10 ML VIAL ONE (15:57)
[2022-05-23] MEDS ORDERED: PHENYLEPHRINE-NS 100 MCG/ML 10 ML SYRINGE ONE ×2 (16:08)
[2022-05-23 19:12] LABS: Lactic Acid 0.4 mmol/L (0.5-2.2)
[2022-05-23 19:36] LABS: Bilirubin, Total 30.6 mg/dL (0.2-1.2)
[2022-05-23 19:37] LABS: ALT (SGPT) 54 U/L (8-55); AST (SGOT) 165 U/L (5-34); Albumin 3.1 g/dL (3.5-5.0); Alkaline Phosphatase 37 U/L (40-110); Anion Gap 17 mmol/L (10-20); BUN (Urea Nitrogen) 28 mg/dL (8.4-25.7); Calc. Creatinine Clearance 22 mL/min (70-130); Calcium 8.9 mg/dL (7.8-10.44); Carbon Dioxide 28 mmol/L (22-29); Chloride 91 mmol/L (98-107); Estimated GFR 15; Globulin 3.6 g/dL (2.4-3.5); Glucose 74 mg/dL (70-105); Potassium 4.2 mmol/L (3.5-5.1); Protein, Total 6.7 g/dL (6.0-8.3); Sodium 132 mmol/L (136-145)
[2022-05-23 22:50] LABS: Actual Bicarbonate (HCO3v) 30 mEq/L (22-28); Base Excess 4.6 mEq/L (-2 - +2); Calcium, Ionized (venous) 1.16 mmol/L (1.16-1.32); Chloride (VBG) 91 mmol/L (98-106); Hemoglobin (Hb) 9.8 g/dL (13.1-17.2); Potassium (VBG) 3.92 mmol/L (3.70-5.30); Puncture Site Other Site; RapidComm Collect By CBN; Sodium 131.7 mmol/L (133-146)
[2022-05-24] MEDS: Dextrose 50% Abboject 50 ML SYRINGE SLOW IVP PRN (00:46)
[2022-05-24] MEDS: Ciprofloxacin Lactate/D5W 200 MG in Premix Bag 1 BAG IVPB SCH ×3 (00:57→22:58)
[2022-05-24 06:10] LABS: INR-International Normal Ratio 1.9; Prothrombin Time 19.9 sec (9.5-12.1)
[2022-05-24 06:11] LABS: #Basophils 0.1 10x3/uL (0.0-0.2); #Eosinphils 0.1 10x3/uL (0.0-0.5); #Monocytes 1.3 10x3/uL (0.0-1.1); #Neutrophils 12.7 10x3/uL (1.5-8.4); %Basophils 0.5 % (0.0-2.0); %Eosinophils 0.9 % (0.0-6.0); %Lymphocytes 5.4 % (18.0-47.0); %Monocytes 8.8 % (0.0-10.0); %Neutrophils 82.7 % (40.0-75.0); Hemoglobin 8.7 g/dL (13.5-17.5); Mean Corpuscular HGB CONC 32.5 g/dL (32.0-36.0); Mean Corpuscular Hemoglobin 33.3 pg (27.0-33.0); Mean Corpuscular Volume 102.7 fl (81.2-95.1); Mean Platelet Volume 10.9 fl (7.4-10.4); Platelet Count 170 10x3/uL (150-450); RBC Distribution Width 21.8 % (11.5-14.5); Red Blood Cell (RBC) Count 2.61 10x6/uL (4.32-5.72); White Blood Cell (WBC) Count 15.3 10x3/uL (3.5-10.5)
[2022-05-24 06:45] LABS: ALT (SGPT) 52 U/L (8-55); AST (SGOT) 151 U/L (5-34); Alkaline Phosphatase 43 U/L (40-110); Anion Gap 15 mmol/L (10-20); BUN (Urea Nitrogen) 14 mg/dL (8.4-25.7); Calc. Creatinine Clearance 33 mL/min (70-130); Calcium 8.9 mg/dL (7.8-10.44); Carbon Dioxide 30 mmol/L (22-29); Chloride 96 mmol/L (98-107); Estimated GFR 25; Globulin 3.5 g/dL (2.4-3.5); Glucose 140 mg/dL (70-105); Potassium 3.7 mmol/L (3.5-5.1); Protein, Total 6.5 g/dL (6.0-8.3); Sodium 137 mmol/L (136-145)
[2022-05-24] MEDS: Metoprolol Tartrate 25 MG TAB PO SCH ×2 (07:39→22:58)
[2022-05-24] MEDS: Calcium Acetate 667 MG CAP PO SCH ×3 (08:34→17:11)
[2022-05-24] MEDS: Saccharomyces boulardii 250 MG CAP PO SCH (08:35)
[2022-05-24] MEDS: Calcium Carbonate 600 MG + Vit D TAB PO SCH (08:35)
[2022-05-24] MEDS: Gabapentin 300 MG CAP PO SCH ×3 (08:35→22:58)
[2022-05-24 12:35] LABS: Scleroderma-70 IgG Antibody 1.5 EliAU/mL (<7 Negative)
[2022-05-24 16:15] LABS: CMV DNA-PCR Test Negative (Negative)
[2022-05-25 05:07] LABS: #Basophils 0.1 10x3/uL (0.0-0.2); #Eosinphils 0.2 10x3/uL (0.0-0.5); #Monocytes 1.7 10x3/uL (0.0-1.1); #Neutrophils 15.3 10x3/uL (1.5-8.4); %Basophils 0.5 % (0.0-2.0); %Eosinophils 1.1 % (0.0-6.0); %Lymphocytes 6.1 % (18.0-47.0); %Monocytes 8.8 % (0.0-10.0); %Neutrophils 81.7 % (40.0-75.0); Hemoglobin 9.2 g/dL (13.5-17.5); Mean Corpuscular HGB CONC 31.2 g/dL (32.0-36.0); Mean Corpuscular Hemoglobin 31.5 pg (27.0-33.0); Platelet Count 241 10x3/uL (150-450); RBC Distribution Width 20.8 % (11.5-14.5); Red Blood Cell (RBC) Count 2.92 10x6/uL (4.32-5.72); White Blood Cell (WBC) Count 18.8 10x3/uL (3.5-10.5)
[2022-05-25 05:33] LABS: Bilirubin, Total 30.9 mg/dL (0.2-1.2)
[2022-05-25 05:52] LABS: ALT (SGPT) 59 U/L (8-55); AST (SGOT) 162 U/L (5-34); Albumin 2.6 g/dL (3.5-5.0); Alkaline Phosphatase 46 U/L (40-110); Anion Gap 14 mmol/L (10-20); BUN (Urea Nitrogen) 24 mg/dL (8.4-25.7); Calc. Creatinine Clearance 25 mL/min (70-130); Calcium 9.3 mg/dL (7.8-10.44); Carbon Dioxide 31 mmol/L (22-29); Chloride 95 mmol/L (98-107); Estimated GFR 18; Glucose 88 mg/dL (70-105); Potassium 4.2 mmol/L (3.5-5.1); Protein, Total 6.6 g/dL (6.0-8.3); Sodium 136 mmol/L (136-145)
[2022-05-25] MEDS: Albumin 25% 25 GM/100 ML BOT IVPB SCH ×3 (09:09→12:25)
[2022-05-25] MEDS: Gabapentin 300 MG CAP PO SCH ×3 (09:09→21:08)
[2022-05-25] MEDS: Metoprolol Tartrate 25 MG TAB PO SCH ×2 (09:09→21:08)
[2022-05-25] MEDS: Calcium Acetate 667 MG CAP PO SCH ×3 (09:10→17:43)
[2022-05-25] MEDS: Calcium Carbonate 600 MG + Vit D TAB PO SCH (09:10)
[2022-05-25] MEDS: Saccharomyces boulardii 250 MG CAP PO SCH (09:59)
[2022-05-25] MEDS: Ciprofloxacin Lactate/D5W 200 MG in Premix Bag 1 BAG IVPB SCH (23:59)
[2022-05-26 04:33] LABS: #Basophils 0.1 10x3/uL (0.0-0.2); #Eosinphils 0.1 10x3/uL (0.0-0.5); #Monocytes 1.4 10x3/uL (0.0-1.1); %Basophils 0.4 % (0.0-2.0); %Eosinophils 0.9 % (0.0-6.0); %Lymphocytes 7.3 % (18.0-47.0); %Monocytes 9.5 % (0.0-10.0); %Neutrophils 80.4 % (40.0-75.0); Hemoglobin 8.4 g/dL (13.5-17.5); Mean Corpuscular HGB CONC 31.7 g/dL (32.0-36.0); Mean Corpuscular Hemoglobin 32.8 pg (27.0-33.0); Mean Corpuscular Volume 103.5 fl (81.2-95.1); Mean Platelet Volume 10.4 fl (7.4-10.4); Platelet Count 200 10x3/uL (150-450); RBC Distribution Width 21.8 % (11.5-14.5); Red Blood Cell (RBC) Count 2.56 10x6/uL (4.32-5.72); White Blood Cell (WBC) Count 14.9 10x3/uL (3.5-10.5)
[2022-05-26 04:54] LABS: Bilirubin, Total 32.4 mg/dL (0.2-1.2)
[2022-05-26 05:13] LABS: ALT (SGPT) 60 U/L (8-55); AST (SGOT) 173 U/L (5-34); Alkaline Phosphatase 46 U/L (40-110); Anion Gap 13 mmol/L (10-20); BUN (Urea Nitrogen) 18 mg/dL (8.4-25.7); Calc. Creatinine Clearance 38 mL/min (70-130); Calcium 9.5 mg/dL (7.8-10.44); Carbon Dioxide 30 mmol/L (22-29); Chloride 98 mmol/L (98-107); Estimated GFR 29; Globulin 3.6 g/dL (2.4-3.5); Glucose 114 mg/dL (70-105); Protein, Total 6.6 g/dL (6.0-8.3); Sodium 137 mmol/L (136-145)
[2022-05-26] MEDS ORDERED: Morphine 2 MG/ML VIAL SLOW IVP SCH (09:45)
[2022-05-26] MEDS: Calcium Acetate 667 MG CAP PO SCH ×3 (11:33→19:24)
[2022-05-26] MEDS: Gabapentin 300 MG CAP PO SCH ×3 (11:33→21:33)
[2022-05-26] MEDS: Saccharomyces boulardii 250 MG CAP PO SCH (11:34)
[2022-05-26] MEDS: Calcium Carbonate 600 MG + Vit D TAB PO SCH (11:34)
[2022-05-26] MEDS: EPOETIN ALFA-EPBX (ESRD) 4,000 UNIT/ML VIAL SC SCH (13:45)
[2022-05-26] MEDS ORDERED: Morphine 2 MG/ML VIAL SLOW IVP PRN (14:19)
[2022-05-27] MEDS: Ciprofloxacin Lactate/D5W 200 MG in Premix Bag 1 BAG IVPB SCH (00:01)
[2022-05-27 05:36] LABS: INR-International Normal Ratio 1.7
[2022-05-27 07:52] LABS: ALT (SGPT) 67 U/L (8-55); AST (SGOT) 172 U/L (5-34); Albumin 2.7 g/dL (3.5-5.0); Alkaline Phosphatase 53 U/L (40-110); Anion Gap 17 mmol/L (10-20); BUN (Urea Nitrogen) 35 mg/dL (8.4-25.7); Calc. Creatinine Clearance 28 mL/min (70-130); Calcium 9.9 mg/dL (7.8-10.44); Carbon Dioxide 26 mmol/L (22-29); Chloride 98 mmol/L (98-107); Estimated GFR 20; Globulin 4.3 g/dL (2.4-3.5); Glucose 122 mg/dL (70-105); Potassium 4.6 mmol/L (3.5-5.1); Sodium 136 mmol/L (136-145)
[2022-05-27 08:00] LABS: Bilirubin, Total 31.6 mg/dL (0.2-1.2)
[2022-05-27] MEDS: Gabapentin 300 MG CAP PO SCH ×2 (09:03→14:28)
[2022-05-27] MEDS: Calcium Carbonate 600 MG + Vit D TAB PO SCH (09:03)
[2022-05-27] MEDS: Calcium Acetate 667 MG CAP PO SCH ×2 (09:03→14:28)
[2022-05-27] MEDS: Saccharomyces boulardii 250 MG CAP PO SCH (09:04)
[2022-05-27] MEDS: Albumin 25% 25 GM/100 ML BOT IVPB PRN ×2 (09:45→10:45)
[2022-05-27 14:42] VITALS: BP 120/58; TEMP 98.1
== END 2022-05-27 15:25 | disposition short-term general hospital (02) | DRG 444 ==
LOC: CSHERS 08:36 → CSHERHOLD 14:07 → CSHTELE 17:04
PROVIDERS: ADMIT Internal Medicine; ATTEND Internal Medicine
PROC: 30233N1 Transfusion of Nonautologous Red Blood Cells into Peripheral Vein, Percutaneous Approach (ICD-10-PCS; principal; 2022-05-17)
PROC: 0F798ZZ Dilation of Common Bile Duct, Via Natural or Artificial Opening Endoscopic (ICD-10-PCS; 2022-05-23)
PROC: 5A1D70Z Performance of Urinary Filtration, Intermittent, Less than 6 Hours Per Day (ICD-10-PCS; 2022-05-23)
DX: K80.61 Calculus of gallbladder and bile duct with cholecystitis, unspecified, with obstruction (principal); I21.A1 Myocardial infarction type 2; K85.10 Biliary acute pancreatitis without necrosis or infection; N18.6 End stage renal disease; A04.72 Enterocolitis due to Clostridium difficile, not specified as recurrent; J98.11 Atelectasis; N25.81 Secondary hyperparathyroidism of renal origin; G93.49 Other encephalopathy; I13.2 Hypertensive heart and chronic kidney disease with heart failure and with stage 5 chronic kidney disease, or end stage renal disease; R18.8 Other ascites; Z20.822 Contact with and (suspected) exposure to COVID-19; E11.22 Type 2 diabetes mellitus with diabetic chronic kidney disease; D63.1 Anemia in chronic kidney disease; Z66 Do not resuscitate; D50.9 Iron deficiency anemia, unspecified; E78.00 Pure hypercholesterolemia, unspecified; F41.9 Anxiety disorder, unspecified; K76.82 Hepatic encephalopathy; F32.A Depression, unspecified; I95.9 Hypotension, unspecified; E11.51 Type 2 diabetes mellitus with diabetic peripheral angiopathy without gangrene; I08.1 Rheumatic disorders of both mitral and tricuspid valves; I25.10 Atherosclerotic heart disease of native coronary artery without angina pectoris; Z99.2 Dependence on renal dialysis; Z79.899 Other long term (current) drug therapy; Z79.82 Long term (current) use of aspirin; Z95.1 Presence of aortocoronary bypass graft; Z89.512 Acquired absence of left leg below knee; Z89.511 Acquired absence of right leg below knee; Z89.212 Acquired absence of left upper limb below elbow
CPT/HCPCS: 36415; 36416; 36430; 70450; 71045; 74018; 74176; 74181; 74330; 76705; 80053; 80074; 82103; 82105; 82140; 82248; 82390; 82553; 82728; 82805; 83516; 83540; 83550; 83605; 83690; 84484; 85025; 85610; 85730; 86015; 86038; 86160; 86225; 86235; 86301; 86850; 86870; 86880; 86900; 86901; 86922; 87040; 87497; 87798; 90935; 93005; 93010; 94760; 97139; C1725; C1769; G0257; J0744; J1430; J1611; J2250; J2272; J2370; J2543; J3010; J3430; J3490; J7070; J7999; P9016; P9047; Q5105; Q9967; U0002